=== PATIENT | female | born 1980 | race Hispanic/Latino ===

== ENCOUNTER 2017-03-16 12:39 | Emergency (ER) | payer OTHER, SELFPAY ==
[2017-03-16] MEDS ORDERED: Fentanyl 100 MCG/2 ML VIAL ONE (13:10)
[2017-03-16] MEDS ORDERED: Lidocaine Viscous Sol 2% 15 ml UD Cup ONE (13:40)
[2017-03-16] MEDS ORDERED: Mag-Al 1200 mg/1200 mg/30 ML UDCUP ONE (13:40)
--- NOTE | 2017-03-16 14:36 | ULT ---
GALLBLADDER ULTRASOUND: Date: 03/16/17 HISTORY: Right upper quadrant pain. FINDINGS: Real-time imaging of the right upper quadrant shows at least two nonshadowing echogenic densities wit hin the gallbladder lumen which do not appear to be mobile. The largest of these measures 9.8 mm. Com mon duct is 6.0 mm. Visualized liver parenchyma shows no focal abnormalities. Right kidney is not obs tructed. Pancreas region appears unremarkable. IMPRESSION: Nonshadowing echogenic densities within the gallbladder which are adherent to the gallbladder wall an d do not change with changes in patient position, probably polyps. POS: IRLANDA
[2017-03-16] MEDS ORDERED: Morphine 4 MG/ML VIAL ONE (16:54)
[2017-03-16 17:28] LABS: ALT (SGPT) 9 U/L (8-55); AST (SGOT) 16 U/L (5-34); Alkaline Phosphatase 60 U/L (40-150); Anion Gap 11 mmol/L (10-20); BUN (Urea Nitrogen) 6 mg/dL (7.0-18.7); Bilirubin, Total 0.3 mg/dL (0.2-1.2); Calc. Creatinine Clearance 0 mL/min (70-130); Calcium 8.2 mg/dL (7.8-10.44); Carbon Dioxide 18 mmol/L (22-29); Chloride 103 mmol/L (98-107); Estimated GFR-MDRD Greater than 90; Globulin 3.7 g/dL (2.4-3.5); Protein, Total 7.2 g/dL (6.0-8.3)
[2017-03-16] MEDS ORDERED: Potassium Chloride 20 MEQ TAB ONE (18:04)
[2017-03-16] MEDS ORDERED: Ondansetron HCl/PF 4 MG/2 ML Vial ONE (18:09)
== END 2017-03-16 18:45 | disposition home or self-care (01) ==
LOC: ERS 12:39
DX: O09.92 Supervision of high risk pregnancy, unspecified, second trimester (principal); O99.612 Diseases of the digestive system complicating pregnancy, second trimester; K29.70 Gastritis, unspecified, without bleeding; O23.42 Unspecified infection of urinary tract in pregnancy, second trimester; R82.71 Bacteriuria; Z3A.15 15 weeks gestation of pregnancy
CPT/HCPCS: 36415; 76705; 96374; 96375; J2270; J2405; J3010

== ENCOUNTER 2017-08-30 20:58 | Inpatient (IN) | payer OTHER ==
[2017-08-30 21:47] VITALS: BMI 29.6
[2017-08-30] MEDS ORDERED: Promethazine HCl 25 MG/ML VIAL IM PRN (22:01)
[2017-08-30] MEDS ORDERED: Acetaminophen 500 MG TAB PO PRN (22:01)
[2017-08-30] MEDS ORDERED: Misoprostol 200 MCG TAB PR PRN (22:01)
[2017-08-30] MEDS ORDERED: Ondansetron HCl/PF 4 MG/2 ML Vial IVP PRN (22:01)
[2017-08-30] MEDS ORDERED: Zolpidem Tartrate 5 MG TAB PO PRN (22:01)
[2017-08-30] MEDS ORDERED: HYDROcodone/Acetaminophen 5/325 mg Tablet PO PRN (22:01)
[2017-08-30] MEDS ORDERED: Methylergonovine 0.2 MG/ML VIAL IM PRN (22:01)
[2017-08-30] MEDS ORDERED: Ibuprofen 800 MG TAB PO PRN (22:01)
[2017-08-30] MEDS ORDERED: Carboprost 250 MCG/ML AMP IM PRN (22:01)
[2017-08-30] MEDS ORDERED: Lidocaine 1% (PF) 30 ML VIAL SC PRN (22:01)
[2017-08-30] MEDS ORDERED: Diphenoxylate HCl/Atropine Tablet PO PRN (22:01)
[2017-08-30] MEDS ORDERED: LR / Pitocin 40 units/1000 ml 1,000 ML IV PRN (22:01)
[2017-08-30] MEDS: Lactated Ringer's 1,000 ML IV SCH (22:15)
[2017-08-30] MEDS ORDERED: LR 500 ML/Oxytocin 10 units 500 ML IV SCH (22:15)
[2017-08-30] MEDS: Misoprostol 100 MCG TAB VAG SCH (22:29)
[2017-08-30 22:32] LABS: Hemoglobin 11.9 g/dL (12.0-16.0); Mean Corpuscular HGB CONC 35.1 g/dL (32.0-36.0); Mean Corpuscular Volume 93.9 fl (81.0-99.0); Mean Platelet Volume 8.3 fL (7.4-10.4); Platelet Count 230 thou/uL (130-400); RBC Distribution Width 12.4 % (11.5-14.5); White Blood Cell (WBC) Count 10.7 thou/uL (4.8-10.8)
[2017-08-30 23:08] LABS: Syphilis Antibody Nonreactive (Nonreactive); Syphilis Antibody Index 0.03 S/CO (<1.00 Non-Reactive)
[2017-08-30 23:13] LABS: Hep B Surf Ag Non-Reactive S/CO (NonReactive)
[2017-08-31] MEDS ORDERED: Calcium Carbonate 500 MG ChewTAB PO PRN (01:55)
[2017-08-31] MEDS: Lactated Ringer's 1,000 ML IV SCH ×4 (03:46→14:45)
[2017-08-31] MEDS: Misoprostol 100 MCG TAB VAG SCH ×4 (04:30→17:46)
--- NOTE | 2017-08-31 08:29 | PDOC.LDHP ---
Labor and Delivery H&P Chief complaint: scheduled induction HPI: 36yo at 39w1d by LMP here for elective IOL. Overnight received 2 doses cytotec. Painful ctx 12/07 Current gestational age (weeks): 39 Due date: 09/06/17 Dating criteria: last menstrual period Grav: 3 Para: 2 OB History Details: lgst baby 8lb 2012 Current complications: none Abnormal US findings: No Past Medical History: denies Current medications: pre- vitamins Previous surgical history: other (right eye surgery) Allergies/Adverse Reactions: Allergies Allergy/AdvReac Type Severity Reaction Status Date / Time No Known Allergies Allergy Verified 08/30/17 21:50 Social history: none - Physical Exam Vital signs reviewed and normal: yes General: NAD Heart: RRR Lungs: CTAB Abdomen: gravid Extremeties: no edema FHT: category 1 Vivian contractions every: q2-3min - Vaginal Exam cm dilated: 1 (difficult exam due to pt discomfort and swelling) - OB Labs RH: positive Antibody Screen: negative HIV: negative RPR: negative HEPSAg: negative 1 hour GCT: positive 3 hour GTT: negative GBS: negative Rubella: immune - Assessment L&D Assessment: elective induction at term - Plan Plan: admit to L&D, labor augmentation if indicated, informed consent obtained, anesthesia consult for pain management
[2017-08-31] MEDS ORDERED: Bupivacaine 0.5% 20 ML, fentaNYL Citrate/PF 400 MCG in Sodium Chloride 0.9% 72 ML EPIDURAL SCH (08:30)
[2017-08-31] MEDS ORDERED: Naloxone HCl 0.4 mg/ml Vial IVP PRN ×2 (08:57)
[2017-08-31] MEDS ORDERED: Lactated Ringer's 500 ML IV PRN (08:57)
[2017-08-31] MEDS ORDERED: Promethazine HCl 25 MG/ML VIAL IM PRN (08:57)
[2017-08-31] MEDS ORDERED: ePHEDrine/0.9% NaCl/PF SYRINGE 50 mg/10 ml SLOW IVP PRN (08:57)
[2017-08-31] MEDS ORDERED: Eucerin (Mineral Oil/Petrolatum,White) 30 gm Jar TOP PRN (08:57)
[2017-08-31] MEDS ORDERED: Acetaminophen 325 MG TAB PO PRN (08:57)
[2017-08-31] MEDS ORDERED: Ondansetron HCl/PF 4 MG/2 ML Vial IVP PRN (08:57)
[2017-08-31] MEDS ORDERED: diphenhydrAMINE 50 MG/ML VIAL IVP PRN (08:57)
[2017-08-31] MEDS ORDERED: Fentanyl 4mcg/Marcaine 0.1% Cassette 100 ML EPIDURAL SCH (09:00)
[2017-08-31] MEDS ORDERED: Communication Order-Pharmacy FS SCH (09:00)
[2017-08-31] MEDS ORDERED: Lidocaine 1% (PF) 30 ML VIAL ONE (14:31)
[2017-08-31] MEDS ORDERED: LR / Pitocin 40 units/1000 ml 1,000 ML ONE (14:31)
--- NOTE | 2017-08-31 14:56 | PDOC.OPDEL ---
OB Operative/Delivery Note Delivery Dr/Surgeon: Remington Assist: n/a Pre-Delivery Diagnosis: elective induction Procedure/Post Delivery Dx: spontaneous vaginal delivery Weeks gestation: 39 Anesthesia: epidural - Findings A Sex: male - 1 min: 9 - 5 min: 9 - Additional Findings/Plan Placenta delivered: spontaneous Repaired Obstetrical Laceration: 1st degree (hemostatic and unrepaired) Estimated blood loss: 400 Post delivery plan: routine recovery
[2017-08-31] MEDS ORDERED: LR / Pitocin 40 units/1000 ml 1,000 ML IV SCH (15:21)
[2017-08-31] MEDS ORDERED: Bisacodyl 10 MG SUPP PR PRN (15:21)
[2017-08-31] MEDS ORDERED: HYDROcodone/Acetaminophen 5/325 mg Tablet PO PRN (15:21)
[2017-08-31] MEDS ORDERED: Milk Of Magnesia 30 ML UDCUP PO PRN (15:21)
[2017-08-31] MEDS ORDERED: Adacel (T-DAP) 0.5 ML VIAL IM ONE (15:21)
[2017-08-31] MEDS ORDERED: Benzocaine/Menthol 20-0.5% 60 ML CAN TOP PRN (15:21)
[2017-08-31] MEDS ORDERED: diphenhydrAMINE 25 MG CAP PO PRN (15:21)
[2017-08-31] MEDS ORDERED: Preparation H Ointment 28 GM TUBE PR PRN (15:21)
[2017-08-31] MEDS ORDERED: Lanolin Ointment 7 GM TUBE TOP PRN (15:21)
[2017-08-31] MEDS: Ferrous Sulfate 325 MG TAB PO SCH (17:45)
[2017-08-31] MEDS: Ibuprofen 800 MG TAB PO SCH (19:55)
[2017-08-31] MEDS: Docusate Calcium (SURFAK) 240 MG CAP PO SCH (19:55)
[2017-09-01] MEDS: HYDROcodone/Acetaminophen 5/325 mg Tablet PO PRN ×4 (00:43→13:54)
[2017-09-01] MEDS: Ibuprofen 800 MG TAB PO SCH ×2 (05:56→13:54)
[2017-09-01] MEDS: Ferrous Sulfate 325 MG TAB PO SCH ×2 (07:40→17:39)
[2017-09-01] MEDS ORDERED: Prenatal Vitamin 1 TAB PO SCH (09:00)
[2017-09-01] MEDS: Docusate Calcium (SURFAK) 240 MG CAP PO SCH (09:16)
[2017-09-01 09:57] VITALS: BP 107/72; TEMP 97.6
== END 2017-09-01 18:35 | disposition home or self-care (01) | DRG 775 ==
LOC: L&D 20:58 → 3SW 08-31 17:23
PROVIDERS: ADMIT Student in an Organized Health Care Education/Training Program; ATTEND Student in an Organized Health Care Education/Training Program
PROC: 10E0XZZ Delivery of Products of Conception, External Approach (ICD-10-PCS; principal; 2017-08-31)
PROC: 3E0P7VZ Introduction of Hormone into Female Reproductive, Via Natural or Artificial Opening (ICD-10-PCS; 2017-08-31)
PROC: 3E033VJ Introduction of Other Hormone into Peripheral Vein, Percutaneous Approach (ICD-10-PCS; 2017-08-31)
DX: O70.0 First degree perineal laceration during delivery (principal); Z3A.39 39 weeks gestation of pregnancy; Z37.0 Single live birth
CPT/HCPCS: 36415; 51702; 85027; 86780; 86850; 86900; 86901; 87340; 90715; C1726; J0595; J2001; J3010; J3490; J7050; J7120

== ENCOUNTER 2017-09-12 10:35 | Outpatient (CLI) | payer OTHER ==
[2017-09-12 11:52] LABS: #Eosinphils 0.2 thou/uL (0.0-0.7); #Lymphocytes 1.5 thou/uL (1.20-3.40); #Monocytes 0.4 thou/uL (0.11-0.59); #Neutrophils 5.2 thou/uL (1.40-6.50); %Basophils 0.3 % (0.0-1.0); %Eosinophils 2.5 % (0.0-10.0); %Lymphocytes 20.6 % (21.0-51.0); %Monocytes 4.8 % (0.0-10.0); %Neutrophils 71.7 % (42.0-75.0); Hemoglobin 12.1 g/dL (12.0-16.0); Mean Corpuscular Hemoglobin 33.3 pg (27.0-31.0); Mean Corpuscular Volume 97.7 fl (81.0-99.0); Mean Platelet Volume 7.4 fL (7.4-10.4); Platelet Count 363 thou/uL (130-400); RBC Distribution Width 12.9 % (11.5-14.5); Red Blood Cell (RBC) Count 3.65 mill/uL (4.20-5.40); White Blood Cell (WBC) Count 7.2 thou/uL (4.8-10.8)
[2017-09-12 12:00] LABS: BHCG - Serum POSITIVE (NEGATIVE); Pregs Control Background? CLEAR/WHITE (CLR/WHITE); Pregs Control Bar Appear? YES (CONTROL BAR)
[2017-09-12 12:11] LABS: ALT (SGPT) 51 U/L (8-55); AST (SGOT) 34 U/L (5-34); Albumin 3.7 g/dL (3.5-5.0); Alkaline Phosphatase 118 U/L (40-150); Anion Gap 10 mmol/L (10-20); BUN (Urea Nitrogen) 9 mg/dL (7.0-18.7); Bilirubin, Direct 0.2 mg/dL (0.1-0.3); Bilirubin, Total 0.4 mg/dL (0.2-1.2); Calc. Creatinine Clearance 0 mL/min (70-130); Calcium 8.9 mg/dL (7.8-10.44); Carbon Dioxide 25 mmol/L (22-29); Chloride 107 mmol/L (98-107); Estimated GFR-MDRD Greater than 90; Glucose 66 mg/dL (70-105); Potassium 3.7 mmol/L (3.5-5.1); Protein, Total 7.1 g/dL (6.0-8.3); Sodium 138 mmol/L (136-145)
== END 2017-09-12 10:36 | disposition home or self-care (01) ==
LOC: LABBT 10:35
PROVIDERS: ATTEND Surgery
DX: Z01.812 Encounter for preprocedural laboratory examination (principal); K82.4 Cholesterolosis of gallbladder
CPT/HCPCS: 80048; 80076; 84702; 84703; 85025

== ENCOUNTER 2017-09-13 05:50 | Day surgery (SDC) | payer OTHER ==
[2017-09-12 10:59] VITALS: BMI 28.7
[2017-09-13] MEDS ORDERED: Bupivacaine/Epinephrine 0.25% 30 ML VIAL ONE (06:29)
[2017-09-13] MEDS ORDERED: CEFAZOLIN/Water 2 GM/20 ML SYRINGE ONE (06:44)
[2017-09-13] MEDS ORDERED: Fentanyl 100 MCG/2 ML VIAL ONE ×3 (07:04→08:58)
[2017-09-13] MEDS ORDERED: Famotidine/PF 20 mg/2ml Vial ONE (07:05)
[2017-09-13] MEDS ORDERED: Ondansetron HCl/PF 4 MG/2 ML Vial ONE ×2 (07:05→09:16)
[2017-09-13] MEDS ORDERED: SUGAMMADEX SODIUM 200 MG/2 ML VIAL ONE (08:40)
[2017-09-13] MEDS ORDERED: Glycopyrrolate 0.2 MG/ML 5 ML SYRINGE ONE (09:16)
[2017-09-13] MEDS ORDERED: PROPOFOL 200 MG/20 ML VIAL ONE (09:16)
[2017-09-13] MEDS ORDERED: Dexamethasone 20 MG/5 ML VIAL ONE (09:16)
[2017-09-13] MEDS ORDERED: Lidocaine 1% PF 5 ML VIAL ONE (09:16)
[2017-09-13] MEDS ORDERED: Ketorolac Tromethamine 30 MG/ML VIAL ONE (09:16)
[2017-09-13] MEDS ORDERED: HYDROcodone/Acetaminophen 5/325 mg Tablet ONE (10:45)
--- NOTE | 2017-09-13 14:02 | OP ---
DATE OF PROCEDURE: September 13, 2017 PREOPERATIVE DIAGNOSES: Gallbladder polyp and right upper quadrant pain. POSTOPERATIVE DIAGNOSES: Gallbladder polyp, right upper quadrant pain, and umbilical hernia. PROCEDURE: Laparoscopic cholecystectomy and umbilical hernia repair without mesh. SURGEON: Bucky Thomas M.D. ANESTHESIA: General. ESTIMATED BLOOD LOSS: Minimal. COMPLICATIONS: None. SPECIMEN: Gallbladder. FINDINGS: Umbilical hernia. PROCEDURE IN DETAIL: The patient was taken to the Operating Room and laid supine on the Operating Priscilla m table. After general anesthetic was obtained, the abdomen was prepped and draped in a sterile fashi on. A curved incision was made below the umbilicus. Cautery was used to dissect down to the umbilical fascia. Umbilical fascia was incised and held up using a Mariam. The abdominal cavity was entered us ing a Dahiana clamp. Holding stitch of Vicryl was placed on each side of the fascia. Huggins trocar was placed. High-flow pneumoperitoneum was obtained. An upper midline 5-mm port and two right upper quadr ant 5-mm ports were placed under direct camera visualization. The gallbladder was retracted from the gallbladder fossa. The peritoneum of the gallbladder was opened anteriorly and posteriorly. The criti castro view triangle was seen showing only the cystic duct and cystic artery branching from medial to la teral. There were no other branching structures. Two clips were placed proximally on the cystic duct and one laterally. It was cut using laparoscopic scissors. The cystic artery was taken in the same wa y. Electrocautery was then used to dissect the gallbladder out of the gallbladder fossa. The gallblad chad was placed in an Endo catch bag and brought out through the Huggins. There was no bleeding or bile in the liver bed. The cystic duct stump and cystic artery stump were intact without evidence of extr avasation or bleeding. All port sites were infiltrated using local anesthesia. All ports were removed under camera visualization. Pneumoperitoneum was let down. The Vicryl was used to close the fascial defect below the umbilicus. All incisions were irrigated and closed using 4-0 Monocryl and DermaBond. The patient was en route to Recovery in stable condition. All instrument counts, needle counts and l ap counts were correct. On closure of the umbilical incision, PDS was used to primarily close the umbilical defect. A mesh w as not placed secondary to the clean contaminated procedure. Umbilical stalk was tacked back down us ing Vicryl and the incision was closed using 4-0 Monocryl. The patient was sent to recovery in stabl e condition. All instrument counts, needle counts, lap counts were correct.
== END 2017-09-13 11:44 | disposition home or self-care (01) ==
LOC: SDC 05:50
PROVIDERS: ATTEND Surgery
PROC: 0WQF0ZZ Repair Abdominal Wall, Open Approach (ICD-10-PCS; principal; 2017-09-13)
PROC: 0FT44ZZ Resection of Gallbladder, Percutaneous Endoscopic Approach (ICD-10-PCS; principal; 2017-09-13)
DX: K80.10 Calculus of gallbladder with chronic cholecystitis without obstruction (principal); K42.9 Umbilical hernia without obstruction or gangrene
CPT/HCPCS: 36415; 84702; 88304; 96374; J0131; J1100; J1885; J2001; J2405; J2704; J3010; S0028

== ENCOUNTER 2018-05-01 09:59 | Outpatient (CLI) | payer BC ==
--- NOTE | 2018-05-01 11:29 | BD ---
BONE DENSITOMETRY USING DEXA: Date: 05/01/17 HISTORY: Screening for osteoporosis. Other disorder of bone density and structure. FINDINGS: Lumbar Spine: BMD (g/cm2) L1 0.797 T-Score: -1.8 Z-Score: -1.6 L2 0.796 T-Score: -2.1 Z-Score: -2.0 L3 0.790 T-Score: -2.7 Z-Score: -2.5 L4 0.826 T-Score: -2.1 Z-Score: -2.0 L1-L4 0.803 T-Score: -2.2 Z-Score: -2.1 Femoral Neck: 0.716 T-Score: -1.2 Z-Score: -1.3 Total Femur: 1.027 T-Score: 0.7 Z-Score: 0.5 The 10 year fracture risk for a major osteoporotic fracture is 2% and for a hip fracture is 0.1%. IMPRESSION: Osteopenia. POS: OFF
== END 2018-05-01 10:00 | disposition home or self-care (01) ==
LOC: BICMAMMO 09:59
PROVIDERS: ATTEND Family Medicine
DX: M85.89 Other specified disorders of bone density and structure, multiple sites (principal)
CPT/HCPCS: 77080

== ENCOUNTER 2021-06-07 14:50 | Outpatient (CLI) | payer BC | END 2021-06-07 14:51 | disposition home or self-care (01) | LOC: BICMAMMO 14:50 | PROVIDERS: ATTEND Physician Assistant | DX: Z12.31 Encounter for screening mammogram for malignant neoplasm of breast (principal) | CPT/HCPCS: 77063; 77067 ==

== ENCOUNTER 2022-11-29 10:58 | Outpatient (CLI) | payer BC | END 2022-11-29 10:59 | disposition home or self-care (01) | LOC: BICMAMMO 10:58 | PROVIDERS: ATTEND Physician Assistant | DX: Z12.31 Encounter for screening mammogram for malignant neoplasm of breast (principal) | CPT/HCPCS: 77063; 77067 ==